=== PATIENT | female | born 1960 | race Caucasian/White ===

== ENCOUNTER 2022-12-21 16:37 | Emergency (ER) | payer BC, SELFPAY ==
[2022-12-21 16:44] VITALS: BP 148/89; PULSE 70; RESP 20; TEMP 36.8; O2SAT 98
--- NOTE | 2022-12-21 17:01 | ED.SKABFB ---
HPI - Skin/Abscess/Foreign Bdy General Chief complaint: Skin/Abscess/Foreign Body Stated complaint: Rash under right arm Time Seen by Provider: 12/21/22 16:50 Source: patient, RN notes reviewed and old records reviewed Mode of arrival: ambulatory Limitations: no limitations History of Present Illness HPI narrative: 62 year old female who presents to [facility] care with complaints of working in yard, mowing, painting at her sons house the past few days and developed rash to her right axilla yesterday. Patient reports that rash has spread today and is itchy she states that she has applied some Hydrocortisone ointment and also some Neosporin ointment to rash area.. Patient denies any difficulty with breathing or swallowing SAO2 98% on room air. MD complaint: rash Onset (ago): day(s) (day 2 of symptoms) Location: RUE (axilla) Severity: moderate Severity scale (1-10): 4 Quality: burning Treatments prior to arrival: OTC topical medication (hydrocortisone ointment) Related Data Allergies Allergy/AdvReac Type Severity Reaction Status Date / Time Sulfa (Sulfonamide Allergy Intermediate Rash Verified 12/21/22 17:05 Antibiotics) Review of Systems Review of Systems: CONSTITUTIONAL: Denies fever, chills, or sweats. CARDIOVASCULAR: Denies chest pain, palpitations, or edema. RESPIRATORY: Denies cough or dyspnea. SKIN: Reports red raised rash to right axilla that is itchy and spreading is burning MUSCULOSKELETAL: Denies joint pain or myalgia. NEUROLOGIC: Denies headache, numbness, or weakness. All systems reviewed & are unremarkable except as noted in HPI and below PMFSH Past Medical History Medical History (Updated 12/22/22 @ 00:00 by [employer]) Ovarian cyst Surgical History Surgical History (Updated 12/21/22 @ 17:37 by Josephine Heath NP) H/O arthroscopy of right knee H/O hernia repair Previous section Social History Social History (Updated 12/21/22 @ 17:32 by Josephine Heath NP) Smoking status: Never smoker Alcohol intake: current Alcohol use details: social Substance use type: does not use Living arrangements: with family Gender identity (if verbalized by the patient): Female Comments At time of signature, agree with nursing past medical, surgical, social and family history. There is no relevant family history pertinent to the presenting complaint Exam Narrative: GENERAL: Well-appearing, well-nourished, and in no acute distress. HEAD: Normocephalic, atraumatic. EYES: PERRLA, conjunctivae clear, and EOMI. ENT: Mucous membranes moist. Oropharynx without edema, erythema or lesions. NECK: Supple. No lymphadenopathy CHEST: Clear to auscultation. No respiratory distress.SAO2 98% on room air HEART: Regular rate and rhythm. SKIN: Warm, dry.? Patches of erythema and edema with itching to the right axilla noted since yesterday. NEURO:? Alert and oriented x3. PSYCH: Normal mood and affect Course Course Emergency Course: Patient is aware of diagnosis, understands and agrees to treatment plan.? Anticipatory guidance given.? Patient agrees to follow-up as directed and is aware of reasons to seek care at the emergency department. Portions of this record may have been created with voice recognition software Level of Care: Express Care Visit Vital Signs Vital signs: Vital Signs Temperature 36.8 C 12/21/22 16:44 Pulse Rate 70 12/21/22 16:44 Respiratory Rate 20 12/21/22 16:44 Blood Pressure 148/89 H 12/21/22 16:44 Pulse Oximetry 98 12/21/22 16:44 Oxygen Delivery Room Air 12/21/22 16:44 Temperature 36.8 C 12/21/22 16:44 Pulse Rate 70 12/21/22 16:44 Respiratory Rate 20 12/21/22 16:44 Blood Pressure 148/89 H 12/21/22 16:44 Pulse Oximetry 98 12/21/22 16:44 Oxygen Delivery Room Air 12/21/22 16:44 Reviewed MDM - Skin/Abscess/Foreign Bdy MDM Narrative Medical decision making narrative: Does not appear at this patrice
== END 2022-12-21 17:14 | disposition home or self-care (01) ==
PROVIDERS: Emergency Provider Registered Nurse
DX: L25.5 Unspecified contact dermatitis due to plants, except food (principal)
CPT/HCPCS: 99213; G0463